=== PATIENT | female | born 1960 | race Two or more races ===

== ENCOUNTER → 2018-02-21 | Outpatient (CLI) | payer OTHER | END | disposition home or self-care (01) | LOC: MA 12:44 | PROC: BH02ZZZ Plain Radiography of Bilateral Breasts (ICD-10-PCS; principal; 2018-02-21) | DX: Z12.31 Encounter for screening mammogram for malignant neoplasm of breast (principal) | CPT/HCPCS: 77067 ==

== ENCOUNTER 2019-01-24 06:50 | Day surgery (SDC) | payer OTHER ==
[~2019-01-24] VITALS: Ht 152.4 cm; Wt 78.5 kg
[2019-01-24 07:28] VITALS: BP 125/80
[2019-01-24 15:08] VITALS: BP 127/76
== END 2019-01-24 10:50 | disposition home or self-care (01) ==
LOC: DS 06:50 → GI 07:30 → OR 07:30 → DS 10:50
DX: Z12.11 Encounter for screening for malignant neoplasm of colon (principal); K57.30 Diverticulosis of large intestine without perforation or abscess without bleeding; K63.89 Other specified diseases of intestine
CPT/HCPCS: 45378; J1200; J1610; J2250; J2310; J3010; J3490

== ENCOUNTER → 2019-03-19 | Outpatient (CLI) | payer OTHER | END | disposition home or self-care (01) | LOC: MI 09:00 | PROC: BP39ZZZ Magnetic Resonance Imaging (MRI) of Left Shoulder (ICD-10-PCS; principal; 2019-03-19) | PROC: BP38ZZZ Magnetic Resonance Imaging (MRI) of Right Shoulder (ICD-10-PCS; 2019-03-19) | DX: M25.511 Pain in right shoulder (principal); M25.512 Pain in left shoulder ==